=== PATIENT | female | born 1945 | race Caucasian/White ===

== ENCOUNTER 2017-02-21 09:12 | Emergency (ER) | payer MEDICAID ==
[~2017-02-21] VITALS: Ht 157.5 cm; Wt 62.0 kg
[2017-02-21 09:16] VITALS: Ht 157.5 cm; Wt 62.0 kg
--- NOTE | 2017-02-21 11:14 | ERD ---
ER Documentation Chief Complaint Chief Complaint pt is bib family with c/o "arthritis to hands, knees, and jaw " x 1 month HPI 71 y/o female, previously healthy, presents to the ED bib daughters c/ o of 3 days of worsening of generalized arthralgias. The pain is dull, deep, 5/ 10 and associated with pelvic discomfort for the last 3 days. The patient has been taking Ibuprofen 400mg PO prn with temporarily relief of the pain. Denies fever or chills. ROS SYSTEMIC symptoms: no fever, chills, no night sweats EYE symptoms: No eyesight problems. OTOLARYNGEAL symptoms: No hearing loss. CARDIOVASCULAR symptoms: No chest pain or discomfort, no palpitations. PULMONARY symptoms: No dyspnea, no cough, no wheezing. GASTROINTESTINAL symptoms: No abdominal pain, no nausea, no vomiting SKIN no rashes MUSCULOSKELETAL symptoms: (+) arthralgias and muscle aches. NEUROLOGY symptoms: No confusion, no syncope, no numbness or tingling. Allergies Allergies: Coded Allergies: No Known Allergy (Unverified , 02/21/17) PMhx/Soc Denies personal history of DM, CAD, cancer. Non smoker Medical and Surgical Hx: pt denies Surgical Hx Hx Alcohol Use: No Hx Substance Use: No Hx Tobacco Use: No Smoking Status: Never smoker Physical Exam Vitals Vital Signs Date Time Temp Pulse Resp B/P Pulse Ox O2 Delivery O2 Flow Rate FiO2 02/21/17 09:16 98.2 74 16 170/91 97 Physical Exam Patient is in no acute distress, vital signs stable. Alert and fully oriented. EYES: PERRLA, EOMI, Sclera and conjunctiva appear normal. EARS: Canals clear, tympanic membranes WNL THROAT: Erythematous oropharynx. NECK: Supple, No lymphadenopathy. Full ROM without pain or tenderness. HEART: RRR, no rubs, murmurs, clicks or gallops. LUNGS: Clear to auscultation bilat. ABDOMEN: Soft, non-tender without masses or hepatosplenomegaly. EXTREMITIES: No edema bilaterally, no localized erythema, warmth or edema. NEURO: No motor or sensory deficit Results 24 hrs Laboratory Tests Test 02/21/17 12:06 Bedside Urine pH (LAB) 7.0 Bedside Urine Protein (LAB) Negative Bedside Urine Glucose (UA) Negative Bedside Urine Ketones (LAB) Negative Bedside Urine Blood Negative Bedside Urine Nitrite (LAB) Negative Bedside Urine Leukocyte Esterase (L 1+ Current Medications Medications (Trade) Dose Ordered Sig/El Route PRN Reason Start Time Stop Time Status Last Admin Dose Admin Ketorolac Tromethamine (Toradol) 15 mg ONCE STAT IM 02/21/17 11:15 02/21/17 11:16 DC 02/21/17 11:33 Procedures/MDM 71 y/o female presents with worsening of arthralgia and pelvic discomfort. Differential diagnosis include Gout, arthritis, viral infection, OA , bacterial infection, thyroid disease. Physical exam including vital signs are unremarkable. Urine showed signs of infection. The patient received Toradol 15mg IM here in ER, presenting overall improvement of the pain. The patient will be DC home with a Rx for TMP-SMX for 3 days, short course of prednisone and Hunt for the acute exacerbation of her arthritis. The patient was instructed to f/u with her PCP in 2-4 days. Departure Diagnosis: Primary Impression: Urinary tract infection Additional Impression: Arthralgia of multiple sites Condition: Stable Patient Instructions: Osteoarthritis, Understanding Urinary Tract Infections ( UTIs) Additional Instructions: Please schedule a follow up appointment with your primary doctor in 2 days and bring all the information and prescriptions that we have given to you today. If the doctor is unavailable and the symptoms like shortness of breath, wheezing, fever persist or worsen, the patient should return to the hospital immediately. LEW SEO MD Feb 21, 2017 11:12
[2017-02-21] MEDS ORDERED: KETOROLAC 15 MG INJ IM STA (11:15)
[2017-02-21 12:06] LABS: URINE BLOOD (Dip) POC Negative (NEGATIVE)
[2017-02-21] MEDS ORDERED: PRED20TA PO (12:59)
[2017-02-21] MEDS ORDERED: SULF1TAB30 PO (12:59)
[2017-02-21] MEDS ORDERED: HYDR-906 PO (12:59)
== END 2017-02-21 13:16 | disposition home or self-care (01) ==
LOC: FTE 09:12
DX: N39.0 Urinary tract infection, site not specified (principal)
CPT/HCPCS: 81003; 96372; J1885; Z7502

== ENCOUNTER → 2017-04-10 | Emergency (ER) | payer MEDICAID, OTHER ==
[~2017-04-10] VITALS: Ht 152.4 cm; Wt 62.6 kg
[~2017-04-10] MED LIST: HYDR-906 PO; ONDANSETRON 4 MG INJ IV STA; PRED20TA PO; SULF1TAB30 PO; morphine 4 MG/ML VIAL IV STA
[2017-04-10 06:47] VITALS: Ht 152.4 cm; Wt 62.6 kg
--- NOTE | 2017-04-10 07:48 | ERD ---
ER Documentation Chief Complaint Chief Complaint Complains of right arm today with pain radiating to the neck last night. HPI This is a 72-year-old female. A booking manager was used. The patient has a prolonged history of neck pain and arm pain as well as bilateral lower extremity pain secondary to radiculopathy and arthritis. The patient takes Speed. It appears the patient is having exacerbation of her pain. She describes the pain is the bilateral neck and right upper extremity as well as bilateral lower extremities that is 8 out of 10 throbbing and worse with movement. She states this is very similar to episodes in the past and very consistent with her chronic pain. She states that she was told to come to the emergency room for an MRI of this continues. She denies any motor weakness, bowel or bladder incontinence, no chest pain or shortness of breath no mid back pain and no pleuritic pain. ROS All systems reviewed and are negative except as per history of present illness. Medications Home Meds Active Scripts Hydrocodone/Acetaminophen (Speed 5-325 Tablet) 1 Each Tablet, 1 EACH PO QHS for SEVERE PAIN LEVEL 7-10 for 3 Days, #12 TAB Prov:LEW SEO MD 02/21/17 Prednisone (Prednisone) 20 Mg Tab, 20 MG PO DAILY for INFLAMATION for 3 Days, # 3 TAB 2 Refills Prov:LEW SEO MD 02/21/17 Sulfamethoxazole/Trimethoprim (Bactrim 400-80 mg Tablet) 1 Each Tablet, 1 EACH PO BID for 5 Days, TAB Prov:LEW SEO MD 02/21/17 Allergies Allergies: Coded Allergies: No Known Allergy (Unverified , 02/21/17) PMhx/Soc Medical and Surgical Hx: pt denies Medical Hx, pt denies Surgical Hx Hx Alcohol Use: No Hx Substance Use: No Hx Tobacco Use: No Smoking Status: Never smoker FmHx Family History: No diabetes Physical Exam Vitals Vital Signs Date Time Temp Pulse Resp B/P Pulse Ox O2 Delivery O2 Flow Rate FiO2 04/10/17 06:47 98.8 98 20 154/80 98 Physical Exam General: Well developed, well nourished, no acute distress Head: Normocephalic, atraumatic. Eyes: Pupils equally reactive, EOM intact ENT: Moist mucous membranes Neck: Supple, no lymphadenopathy, No midline tenderness, deformities, step-offs to the cervical spine, full active and passive range of motion without midline pain. Respiratory: Lungs clear bilaterally, no distress Cardiovascular: RRR, no murmurs, rubs, or gallops Abdominal: Soft, non-tender, non-distended, no peritoneal signs : Deferred MSK: No edema, no unilateral swelling, 5/5 strength to all extremities however, very slight decreased strength of the right upper extremity but this is reported to be at baseline. Neurologic: Alert and oriented, moving all extremities, normal speech, no focal weakness, no cerebellar signs Skin: No rash Psych: Normal mood Results 24 hrs Current Medications Medications (Trade) Dose Ordered Sig/El Route PRN Reason Start Time Stop Time Status Last Admin Dose Admin Morphine Sulfate (morphine) 4 mg ONCE STAT IV 04/10/17 07:11 04/10/17 07:12 DC 04/10/17 07:27 Ondansetron HCl (Zofran Inj) 4 mg ONCE STAT IV 04/10/17 07:11 04/10/17 07:12 DC 04/10/17 07:27 Procedures/MDM EKG: I reviewed and interpreted a 12-lead EKG. Rhythm: Normal sinus rhythm Ectopy: None Intervals: No abnormalities ST segments: No elevations or depressions T waves: No contiguous inversions The patient presents to the emergency room complaining of neck pain, arm pain and bilateral lower extremity pain. She states this pain has been chronic and over the past several years has been pretty consistent. She is having an exacerbation of pain. I believe her symptomatology is very consistent with chronic arthritis, chronic pain and chronic cervical radiculopathy. No evidence of cauda equina, cord compression or acute neurologic deficit. The patient does have some slight weakness of the right upper extremity but this is stable from baseline. She is not describing any chest pain, no migratory pain to the mid back. I do not believe this is consistent with dissection. At this point I do not feel the patient warrants emergent MRI imaging. No further imaging is necessary as the patient has had workup in this in the past. The patient has had visits back to 2013 for similar symptoms. I do not believe this is cardiac in nature, vascular nature. For these reasons I do not feel the patient warrants further investigation. A screening EKG was obtained that shows no evidence of ischemia. The patient will benefit from pain control medication here in the emergency room. She is taking Speed as an outpatient which I believe she should continue. The patient will be directed to [facility] primary care as she has not been able to follow-up with her primary care physician as she only has emergency [facility]. The patient was given morphine with improved symptomatology. At this point the patient can be safely discharged home. We discussed follow up with the patient's primary care doctor within 24 to 48 hours as needed. We also discussed return to the emergency room for worsening symptoms or worsening condition. Outpatient referral: Primary care through [facility] Continue Speed at home Departure Diagnosis: Primary Impression: Arthritis Additional Impression: Cervical radiculopathy Condition: Stable Patient Instructions: Radiculopathy, Cervical [facility] Beth se rodriguez hecho un examen mdico de control que le indica que no est en juliana condicin que requiera tratamiento urgente en el Departamento de Emergencia. Un estudio ms profundo y el tratamiento de black condicin pueden esperar sin ningn riesgo hasta que usted sea atendida/o en el consultorio de black mdico o juliana cl josé antonio. Es responsabilidad suya arreglar juliana amelia para el seguimiento del william. MANEJO DE CONDICIONES NO URGENTES EN EL FUTURO 1) Si usted tiene un mdico de atencin primaria: Usted debera llamar a black mdico de atencin primaria antes de venir al departamento de emergencia. Despus de las horas de consultorio, black doctor o black asociado/a est disponible por telfono. El mdico o enfermero de kory en el servicio telefnico puede asesorarle por christin medio para atender el problema, o william contrario se puede programar juliana amelia. 2) Si usted no tiene un mdico de atencin primaria: Llame al mdico o clnica de referencia que aparece abajo diana las horas de consultorio para hacer juliana amelia para que le vean. CLINICAS: [facility] [phone] [facility] [phone] [facility] [phone] [place] [address] [phone] [place] [address] [phone] [place] [id number] [phone] [facility]. [facility] () Usted se rodriguez hecho un examen mdico de control que le indica que no est en juliana condicin que requiera tratamiento urgente en el Departamento de Emergencia. Un estudio ms profundo y el tratamiento de black condicin pueden esperar sin ningn riesgo hasta que usted sea atendida/o en el consultorio de black mdico o juliana cl josé antonio. Es responsabilidad suya arreglar juliana amelia para el seguimiento del william. MANEJO DE CONDICIONES NO URGENTES EN EL FUTURO 1) Si usted tiene un mdico de atencin primaria: Usted debera llamar a black mdico de atencin primaria antes de venir al departamento de emergencia. Despus de las horas de consultorio, black doctor o black asociado/a est disponible por telfono. El mdico o enfermero de kory en el servicio telefnico puede asesorarle por christin medio para atender el problema, o william contrario se puede programar juliana amelia. 2) Si usted no tiene un mdico de atencin primaria: Llame al mdico o condado institucions de referencia que aparece abajo diana las horas de consultorio para hacer juliana amelia para que le vean. SI USTED NO PUEDE PAGAR PARA KATE UN MEDICO puede ir a: [facility] [id number] [place] [address] [facility] [address] [place] [address] [facility] [address] [place] [address] [facility] [address] [place], [place] [id number] [facility] Primary care and PM&R for chronic neck pain and radiculopathy Additional Instructions: Llame al doctor nombrado abajo (Referral Sources) MAANA y reji juliana AMELIA PARA DENTRO DE JULIANA SEMANA. Dgale a la secretaria que nosotros le instruimos hacer esta amelia.Avise o llame si black condicin se empeora antes de la amelia. BARRON CONTRERAS MD Apr 10, 2017 07:48
== END | disposition home or self-care (01) ==
LOC: E/R 06:45
DX: M54.12 Radiculopathy, cervical region (principal); M19.90 Unspecified osteoarthritis, unspecified site
CPT/HCPCS: 93005; 96374; 96375; J2270; J2405; Z7502